=== PATIENT | male | born 2005 | race Hispanic/Latino ===

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

== ENCOUNTER 2024-01-10 22:58 | Emergency (ER) | payer OTHER, SELFPAY ==
[2024-01-10] MEDS ORDERED: NA CHLORIDE 0.9% 1,000 ML ONE (23:23)
[2024-01-10 23:36] LABS: Absolute Basophils 0.1 K/uL (0-0.5); Absolute Lymphocytes (CBC) 4.3 K/uL (0.7-4.9); Absolute Monocytes 1.1 K/uL (0.1-1.3); Absolute Neutrophil 10.8 K/uL (1.8-8.0); Basophils % 0.4 % (0-1.3); Eosinophils % 0.2 % (0-4.4); Hematocrit 44.2 % (39.6-49.0); Hemoglobin 15.2 g/dL (13.6-17.9); Lymphocytes % 26.4 % (15.3-44.8); MCH 29.8 pg (27.0-35.0); MCHC 34.4 g/dL (32.0-36.0); MCV 86.5 fL (80-100); MPV 9.1 fL (7.6-11.3); Monocytes % 6.7 % (3.3-12.3); Neutrophils % 66.3 % (41.7-73.7); Platelets 361 thou/uL (152-406); Red Cell Distribution Width 12.8 % (12.1-15.2)
[2024-01-10 23:54] LABS: Albumin 4.5 g/dL (3.4-5.0); Albumin/Globulin Ratio 1.3 (1.1-1.8); Anion Gap 9.1 mEq/L (5.0-15.0); Bilirubin Total 0.6 mg/dL (0.2-1.0); Globulin 3.4 g/dL (2.3-3.5); Magnesium 2.1 mg/dL (1.6-2.4); Potassium 3.1 mEq/L (3.5-5.1); Protein, Total 7.9 g/dL (6.4-8.2)
--- NOTE | 2024-01-11 02:38 | ER ---
Nurse's Notes [facility] Name: Flex Lo Age: 18 yrs Sex: Male : 2005 Arrival Date: 01/10/2024 Time: 22:58 Bed 8 Private MD: Diagnosis: Accidental overdose of opiates Presentation: 01/09 23:11 Chief complaint: grandmother reports " i [place] from the mall and he was okay as bm8 i started driving he began having trouble breathing and passed out. I think he is overdosing.". Coronavirus screen: Client denies travel out of the [place] in the last 14 days. At this time, the client does not indicate any symptoms associated with coronavirus-19. Ebola Screen: Patient negative for fever greater than or equal to 101.5 degrees Fahrenheit, and additional compatible Ebola Virus Disease symptoms Patient denies exposure to infectious person. Patient denies travel to an Ebola-affected area in the 21 days before illness onset. No symptoms or risks identified at this time. Initial Sepsis Screen: Does the patient meet any 2 criteria? No. Patient's initial sepsis screen is negative. Does the patient have a suspected source of infection? No. Patient's initial sepsis screen is negative. Risk Assessment: Do you want to hurt yourself or someone else? Patient reports no desire to harm self or others. Onset of symptoms was January 10, 2024 at 22:30. 23:11 Method Of Arrival: Ambulatory bm8 23:11 Acuity: AKI 2 bm8 Triage Assessment: 23:14 General: Appears distressed, Behavior is listless. Pain: Denies pain. EENT: No deficits bm8 noted. No signs and/or symptoms were reported regarding the EENT system. Neuro: Level of Consciousness is listless, Oriented to none. Cardiovascular: No deficits noted. Heart tones S1 S2 Capillary refill < 3 seconds skin is hot and diaphoretic. Rhythm is sinus tachycardia. Respiratory: Airway is patent Respiratory effort is weak, Respiratory pattern is hypoventilation snoring Breath sounds are clear bilaterally. the patient has severe shortness of breath. GI: No deficits noted. No signs and/or symptoms were reported involving the gastrointestinal system. : No deficits noted. No signs and/or symptoms were reported regarding the genitourinary system. Derm: No deficits noted. No signs and/or symptoms reported regarding the dermatologic system. Musculoskeletal: No deficits noted. No signs and/or symptoms reported regarding the musculoskeletal system. Historical: - Allergies: 23:14 CEPHALOSPORINS; bm8 23:14 PENICILLINS; bm8 23:14 SULFA SULFONAMIDE ANTIBIOTICS; bm8 - Home Meds: 23:14 None [Active]; bm8 - PMHx: 23:14 Raynauds; bm8 - PSHx: 23:14 left thumb repair (Raynauds ); bm8 - Immunization history:: Adult Immunizations up to date. - Infectious Disease History:: Denies. - Social history:: Smoking status: Patient reports the use of cigarette tobacco products, denies chronic smoking, but will smoke occasionally. - Family history:: not pertinent. Screenin:19 [facility] ED Fall Risk Assessment (Adult) History of falling in the last 3 months, bm8 including since admission No falls in past 3 months (0 pts) Confusion or Disorientation Yes (5 pts) Intoxicated or Sedated Yes (3 pts) Impaired Gait Yes (1 pt) Mobility Assist Device Used No (0 pt) Altered Elimination No (0 pt) Score/Fall Risk Level 3 or more points = High Risk Oriented to surroundings, Maintained a safe environment, Educated pt \\T\\ family on fall prevention, incl call for assistance when getting out of bed, Assessed \\T\\ reinforced patient's understanding of fall precautions, Hourly rounding (assess needs \\T\\ fall precautionary measures) done, Utilized family, sitter, or virtual vp compliance as indicated. Abuse screen: Denies threats or abuse. Nutritional screening: No deficits noted. Tuberculosis screening: No symptoms or risk factors identified. Assessment: 23:19 Reassessment: see triage note. bm8 23:35 Reassessment: Patient appears in no apparent distress at this time. Patient and/or bm8 family updated on plan of care and expected duration. Pain level reassessed. Patient is alert, oriented x 3, equal unlabored respirations, skin warm/dry/pink. Patient denies pain at this time. Patient states feeling better. Patient states symptoms have improved. General: Appears in no apparent distress. comfortable, Behavior is calm, cooperative, appropriate for age. Pain: Denies pain. Neuro: No deficits noted. Level of Consciousness is awake, alert, obeys commands, Oriented to person, place, time, situation, Appropriate for age. Cardiovascular: No deficits noted. Heart tones S1 S2 present Capillary refill < 3 seconds Patient's skin is warm and dry. Rhythm is sinus rhythm. Respiratory: No deficits noted. Airway is patent Respiratory effort is even, unlabored, Respiratory pattern is regular, Breath sounds are clear bilaterally. GI: No deficits noted. No signs and/or symptoms were reported involving the gastrointestinal system. : No deficits noted. No signs and/or symptoms were reported regarding the genitourinary system. EENT: No deficits noted. No signs and/or symptoms were reported regarding the EENT system. Derm: No deficits noted. No signs and/or symptoms reported regarding the dermatologic system. Musculoskeletal: No deficits noted. No signs and/or symptoms reported regarding the musculoskeletal system. 01/10 00:44 Reassessment: Patient appears in no apparent distress at this time. No changes from bm8 previously documented assessment. Patient and/or family updated on plan of care and expected duration. Pain level reassessed. Patient is alert, oriented x 3, equal unlabored respirations, skin warm/dry/pink. Patient denies pain at this time. Patient states feeling better. Patient states symptoms have improved. Respiratory: Airway is patent Respiratory effort is even, unlabored, Respiratory pattern is regular, Breath sounds are clear bilaterally. 02:24 Reassessment: Patient appears in no apparent distress at this time. Patient and/or bm8 family updated on plan of care and expected duration. Pain level reassessed. Patient is alert, oriented x 3, equal unlabored respirations, skin warm/dry/pink. Patient denies pain at this time. Patient states feeling better. Patient states symptoms have improved. General: Appears in no apparent distress. comfortable, Behavior is calm, cooperative, appropriate for age. Pain: Denies pain. Neuro: No deficits noted. Level of Consciousness is awake, alert, obeys commands, Oriented to. Cardiovascular: No deficits noted. Heart tones S1 S2 present Capillary refill < 3 seconds Patient's skin is warm and dry. Rhythm is regular. Respiratory: No deficits noted. Airway is patent Respiratory effort is even, unlabored, Respiratory pattern is regular, Breath sounds are clear bilaterally. GI: No deficits noted. No signs and/or symptoms were reported involving the gastrointestinal system. : No deficits noted. No signs and/or symptoms were reported regarding the genitourinary system. EENT: No deficits noted. No signs and/or symptoms were reported regarding the EENT system. Derm: No deficits noted. No signs and/or symptoms reported regarding the dermatologic system. Musculoskeletal: No deficits noted. No signs and/or symptoms reported regarding the musculoskeletal system. 02:42 Reassessment: Patient appears in no apparent distress at this time. Patient is alert, km8 oriented x 3, equal unlabored respirations, skin warm/dry/pink. Patient denies pain at this time. Overdose: 01/09 23:38 [place] Suicide Severity Screening: "In the past month, have you wished you were bm8 or wished you could go to sleep and not wake up?" Patient responds "no." "In the past month, have you actually had any thoughts of killing yourself?" Patient responds "no." "In your lifetime, have you ever done anything, started to do anything, or prepared to do anything to end your life?" Patient responds "no.". Overdose occurred 30 minutes to 1 hour ago. 01/10 00:48 [place] Suicide Severity Screening: "In the past month, have you wished you were bm8 or wished you could go to sleep and not wake up?" Patient responds "no." "In the past month, have you actually had any thoughts of killing yourself?" Patient responds "no." "In your lifetime, have you ever done anything, started to do anything, or prepared to do anything to end your life?" Patient responds "no.". 02:27 [place] Suicide Severity Screening: "In the past month, have you wished you were bm8 or wished you could go to sleep and not wake up?" Patient responds "no." "In the past month, have you actually had any thoughts of killing yourself?" Patient responds "no." "In your lifetime, have you ever done anything, started to do anything, or prepared to do anything to end your life?" Patient responds "no.". Vital Signs: 01/09 23:11 BP 117 / 66; Pulse 130; Resp 21; Temp 98.7; Pulse Ox 90% on R/A; Weight 63.5 kg; Height bm8 6 ft. 0 in. ; Pain 0/10; 23:35 BP 129 / 83; Pulse 97; Resp 18; Temp 98.4; Pulse Ox 98% on R/A; Pain 0/10; bm8 01/10 00:45 BP 118 / 88; Pulse 74; Resp 17; Temp 98.5; Pulse Ox 100% on R/A; Pain 0/10; bm8 02:24 BP 115 / 80; Pulse 95; Resp 15; Temp 98.4; Pulse Ox 97% on R/A; Pain 0/10; bm8 02:30 BP 125 / 75; Pulse 98; Resp 16; Pulse Ox 97% on R/A; km8 01/09 23:11 Body Mass Index 18.99 (63.50 kg, 182.88 cm) - Percentile 4.4 % bm8 01/09 23:11 Pain Scale: Adult bm8 23:35 Pain Scale: Adult bm8 01/10 00:45 Pain Scale: Adult bm8 02:24 Pain Scale: Adult bm8 Milagros Coma Score: 01/09 23:35 Eye Response: spontaneous(4). Motor Response: obeys commands(6). Verbal Response: bm8 oriented(5). Total: 15. 01/10 02:24 Eye Response: spontaneous(4). Motor Response: obeys commands(6). Verbal Response: bm8 oriented(5). Total: 15. ED Course: 01/09 22:59 Patient arrived in ED. [email or web address] 23:11 Adi Fields, RN is Primary Nurse. bm8 23:13 Oleksandr De Leon MD is Attending Physician. rt 23:14 Triage completed. bm8 23:14 Arm band placed on right wrist. Patient placed in an exam room, on a stretcher, on bm8 oxygen, on nurse monitoring, on pulse oximetry. 23:19 Patient has correct armband on for positive identification. Placed in gown. Bed in low bm8 position. Call light in reach. Side rails up X2. Adult w/ patient. awake overnight monitor on. Pulse ox on. NIBP on. Door closed. Noise minimized. Visitors limited. Verbal reassurance given. 23:19 Inserted saline lock: 18 gauge in right antecubital area, using aseptic technique. bm8 Blood collected. Oxygen administration via nasal cannula \\T\\ 2L/min Response to oxygen therapy: symptoms improved. 23:35 Initial lab(s) drawn, by me, sent to lab. EKG done, by ED staff, reviewed by Oleksandr De Leon MD. 04 00:45 No provider procedures requiring assistance completed. bm8 02:24 Awaiting disposition. bm8 02:24 Provided Education on: discharge instructions and need to stop abusing drugs.. Cardiac bm8 monitor on. Pulse ox on. NIBP on. Door closed. Noise minimized. Visitors limited. Warm blanket given. pt ordered food to eat. 02:51 IV discontinued, intact, bleeding controlled, No redness/swelling at site. Pressure bm8 dressing applied. Administered Medications: 01/09 23:01 Drug: Naloxone IVP 0.4 mg IVP once Route: IVP; Site: right antecubital; bm8 01/10 00:46 Follow up: Response: Marked relief of symptoms bm8 01/09 23:21 Drug: NS 0.9% IV 1000 ml IV at 1 bolus Per protocol; 1000 mL bolus Route: IV; Rate: 1 bm8 bolus; Site: right antecubital; 01/10 00:46 Follow up: Response: No adverse reaction; IV Status: Completed infusion; IV Intake: bm8 1000ml Medication: 01/09 23:19 VIS not applicable for this client. bm8 01/10 02:24 VIS not applicable for this client. bm8 Intake: 00:46 IV: 1000ml; Total: 1000ml. bm8 Outcome: 02:38 Discharge ordered by . rt 02:50 Discharged to home ambulatory, with family, bm8 02:50 Condition: stable 02:50 Discharge instructions given to patient, family, Instructed on discharge instructions, follow up and referral plans. safety practices, Demonstrated understanding of instructions, follow-up care, medications, 02:54 Patient left the ED. bm8 Signatures: Kiersten Madrigal [email or web address] Oleksandr De Leon MD MD rt Tsering Cavanaugh RN RN km8 Adi Fields, RN RN bm8 Corrections: (The following items were deleted from the chart) 00:48 01/09 23:38 [place] Suicide Severity Screening: "In the past month, have you wished bm8 you were or wished you could go to sleep and not wake up?" Patient responds "no." Patient responds "yes." Based off client's responses, additional C-SSRS screening questions required. "In the past month, have you actually had any thoughts of killing yourself?" Patient responds "no." "In your lifetime, have you ever done anything, started to do anything, or prepared to do anything to end your life?" Patient responds "no." bm8 01/10 00:48 01/09 23:39 [place] Suicide Severity Screening: "In the past month, have you actually bm8 had any thoughts of killing yourself?" Patient responds "yes." bm8 01/10 00:48 00:47 [place] Suicide Severity Screening: "In the past month, have you actually had bm8 any thoughts of killing yourself?" Patient responds "no." additional screening not needed bm8
--- NOTE | 2024-01-11 02:38 | EDPHYS ---
Physician Documentation [facility] Name: Flex Lo Age: 18 yrs Sex: Male : 2005 Arrival Date: 01/10/2024 Time: 22:58 Bed 8 Private MD: ED Physician Oleksanrd De Leon HPI: 01/10 00:59 This 18 yrs old Male presents to ER via Ambulatory with complaints of Possible rt Overdose. 00:59 Patient presents to the ED with concern for overdose. Patient smoked marijuana rt cigarette which may have been laced with fentanyl. Patient became unresponsive other grandmother brought him for further evaluation. No further history could be obtained, symptoms are moderate severity, no other aggravating alleviating factors.. Historical: - Allergies: 01/09 23:14 CEPHALOSPORINS; bm8 23:14 PENICILLINS; bm8 23:14 SULFA SULFONAMIDE ANTIBIOTICS; bm8 - Home Meds: 23:14 None [Active]; bm8 - PMHx: 23:14 Raynauds; bm8 - PSHx: 23:14 left thumb repair (Raynauds ); bm8 - Immunization history:: Adult Immunizations up to date. - Infectious Disease History:: Denies. - Social history:: Smoking status: Patient reports the use of cigarette tobacco products, denies chronic smoking, but will smoke occasionally. - Family history:: not pertinent. ROS: 01/10 00:59 Unable to obtain ROS due to altered mental status, rt Exam: 00:59 Head/Face: Normocephalic, atraumatic. Chest/axilla: Normal chest wall appearance and rt motion. Nontender with no deformity. No lesions are appreciated. Cardiovascular: Regular rate and rhythm with a normal S1 and S2. No gallops, murmurs, or rubs. Normal PMI, no JVD. No pulse deficits. Respiratory: Lungs have equal breath sounds bilaterally, clear to auscultation and percussion. No rales, rhonchi or wheezes noted. No increased work of breathing, no retractions or nasal flaring. Abdomen/GI: Soft, non-tender, with normal bowel sounds. No distension or tympany. No guarding or rebound. No evidence of tenderness throughout. MS/ Extremity: Pulses equal, no cyanosis. Neurovascular intact. Full, normal range of motion. 00:59 Constitutional: The patient appears Somnolent, bradypneic 00:59 ECG was reviewed by the Attending Physician. 00:59 Neuro: Moves all 4 extremities equally, somnolent, Vital Signs: 01/09 23:11 BP 117 / 66; Pulse 130; Resp 21; Temp 98.7; Pulse Ox 90% on R/A; Weight 63.5 kg; Height bm8 6 ft. 0 in. ; Pain 0/10; 23:35 BP 129 / 83; Pulse 97; Resp 18; Temp 98.4; Pulse Ox 98% on R/A; Pain 0/10; bm8 01/10 00:45 BP 118 / 88; Pulse 74; Resp 17; Temp 98.5; Pulse Ox 100% on R/A; Pain 0/10; bm8 02:24 BP 115 / 80; Pulse 95; Resp 15; Temp 98.4; Pulse Ox 97% on R/A; Pain 0/10; bm8 02:30 BP 125 / 75; Pulse 98; Resp 16; Pulse Ox 97% on R/A; km8 01/09 23:11 Body Mass Index 18.99 (63.50 kg, 182.88 cm) - Percentile 4.4 % bm8 01/09 23:11 Pain Scale: Adult bm8 23:35 Pain Scale: Adult bm8 01/10 00:45 Pain Scale: Adult bm8 02:24 Pain Scale: Adult bm8 Milagros Coma Score: 01/09 23:35 Eye Response: spontaneous(4). Motor Response: obeys commands(6). Verbal Response: bm8 oriented(5). Total: 15. 01/10 02:24 Eye Response: spontaneous(4). Motor Response: obeys commands(6). Verbal Response: bm8 oriented(5). Total: 15. MDM: 01/09 23:13 Patient medically screened. rt 01/10 01:48 Differential diagnosis: Opiate overdose. Data reviewed: vital signs, nurses notes, lab rt test result(s), EKG. Test considered but Not performed: CT: Patient return to baseline mental status with Narcan, CT scan of the head is not indicated. Care significantly affected by the following Social Determinants of Health: Misuse of alcohol and/or drugs. Counseling: I had a detailed discussion with the patient and/or guardian regarding the historical points, exam findings, and any diagnostic results supporting the discharge/admit diagnosis, lab results, the need for outpatient follow up, to return to the emergency department if symptoms worsen or persist or if there are any questions or concerns that arise at home. Response to treatment: the patient's symptoms have markedly improved after treatment. 01/09 23:14 Order name: CBC with Diff; Complete Time: 00:04 rt 01/09 23:14 Order name: CMP; Complete Time: 00:04 rt 01/09 23:14 Order name: CPK; Complete Time: 00:04 rt 01/09 23:14 Order name: Magnesium; Complete Time: 00:04 rt 01/09 23:14 Order name: EKG; Complete Time: 23:14 rt 01/09 23:14 Order name: EKG - Nurse/Tech; Complete Time: 23:35 rt EC:59 Rate is 91 beats/min. Rhythm is regular, Normal Sinus Rhythm with No ectopy. QRS [place] rt is Normal. AR interval is normal. QRS interval is normal. QT interval is normal. No Q waves. T waves are Normal. No ST changes noted. Interpreted by me. Administered Medications: 01/09 23:01 Drug: Naloxone IVP 0.4 mg IVP once Route: IVP; Site: right antecubital; [facility] 01/10 00:46 Follow up: Response: Marked relief of symptoms [facility] 01/09 23:21 Drug: NS 0.9% IV 1000 ml IV at 1 bolus Per protocol; 1000 mL bolus Route: IV; Rate: 1 bm8 bolus; Site: right antecubital; 01/10 00:46 Follow up: Response: No adverse reaction; IV Status: Completed infusion; IV Intake: bm8 1000ml Disposition Summary: 01/11/24 02:38 Discharge Ordered Notes: Location: Home rt Problem: new rt Symptoms: are resolved rt Condition: Stable rt Diagnosis - Accidental overdose of opiates rt Followup: rt - With: Private Physician - When: 2 - 3 days - Reason: Discharge Instructions: - Discharge Summary Sheet rt - Opioid Overdose rt Forms: - Medication Reconciliation Form rt - Thank You Letter rt - Antibiotic Education rt - Prescription Opioid Use rt - Patient Portal Instructions rt - Leadership Thank You Letter rt Signatures: Dispatcher MedHo Jacinto Oviedo RN RN [id number] Oleksandr De Leon MD MD rt Adi Fields, RN RN bm8 Corrections: (The following items were deleted from the chart) 01/09 23:15 23:14 CBC+H.LAB.BRZ ordered. EDMS EDMS : 23:14 COMPREHENSIVE METABOLIC PANEL+C.LAB.BRZ ordered. EDMS EDMS :15 23:14 CREATINE PHOSPHOKINASE+C.LAB.BRZ ordered. EDMS EDMS 23:15 23:14 MAGNESIUM+C.LAB.BRZ ordered. EDMS EDMS
[2024-01-11 12:22] VITALS: BP 125/75; TEMP 98.4; O2SAT 97
--- NOTE | 2024-01-13 12:49 | EKG ---
Test Date: 2024-01-10 Test Time: 23:32:57 Butcher Scullion: OZ MEASUREMENT RESULTS: Intervals: Rate: 91 GA: 148 QRSD: 90 QT: 350 QTc: 430 [place]: P: 75 GA: 148 QRS: 58 T: 60 INTERPRETIVE STATEMENTS: Normal sinus rhythm with sinus arrhythmia Normal ECG No previous ECG available for comparison Electronically Signed On 01-13-24 12:42:49 CDT by Jose Alberto Cortés
== END 2024-01-11 02:54 | disposition home or self-care (01) ==
LOC: ER 22:58
DX: R41.82 Altered mental status, unspecified (principal); T40.601A Poisoning by unspecified narcotics, accidental (unintentional), initial encounter
CPT/HCPCS: 36415; 80053; 82550; 83735; 85025; 93005; 96361; 96374; 99291; 99292; J7030